=== PATIENT | female | born 1980 ===

== ENCOUNTER 2023-02-28 06:50 | Day surgery (SDC) | payer OTHER ==
[~2023-02-28] VITALS: Ht 157.5 cm; Wt 68.0 kg
[2023-02-28] MEDS ORDERED: COLACE100 MG PO (12:22)
[2023-02-28] MEDS ORDERED: TRAM1TAB98 PO (12:22)
== END 2023-02-28 19:00 | disposition home or self-care (01) ==
LOC: CIR.AMB 06:50
PROVIDERS: ATTEND Surgery
DX: K62.0 Anal polyp (principal); K62.1 Rectal polyp; K62.89 Other specified diseases of anus and rectum; K64.8 Other hemorrhoids; K62.2 Anal prolapse; K64.4 Residual hemorrhoidal skin tags; I10 Essential (primary) hypertension; Z20.822 Contact with and (suspected) exposure to COVID-19